=== PATIENT | female | born 1950 | race Asian ===

== ENCOUNTER → 2019-06-30 | Outpatient (CLI) | payer OTHER, MEDICARE ==
[~2019-06-30] MED LIST: AMLO10TA7 PO; ARTHRITIS MED; CALC-1038 PO; CETI10TA59 PO; GLUC100019 PO
[2019-06-30 11:42] LABS: BASOPHILS % (AUTO) 0.9 % (0.0-2.0); EOSINOPHILS % (AUTO) 2.1 % (1.0-6.0); HEMATOCRIT 40.1 % (36-46); HEMOGLOBIN 13.3 g/dL (12.0-16.0); LYMPHOCYTES # (AUTO) 1.2 K/uL (1.0-4.8); LYMPHOCYTES % (AUTO) 24.2 % (22.0-44.0); MEAN CORPUSCULAR HEMOGLOBIN 29.4 pg (26.0-34.0); MEAN CORPUSCULAR HGB CONC 33.1 G/dL (31.0-37.0); MEAN CORPUSCULAR VOLUME 89 fL (80-100); MONOCYTES # (AUTO) 0.3 K/uL (0.1-1.0); MONOCYTES % (AUTO) 6.6 % (2.0-9.0); NEUTROPHILS # (AUTO) 3.2 K/uL (1.8-7.7); NEUTROPHILS % (AUTO) 66.2 % (40.0-70.0); PLATELET COUNT (AUTO) 229 K/uL (150-450); RED BLOOD CELL COUNT(AUTO) 4.52 MIL/uL (4.00-5.20); RED CELL DISTRIBUTION WIDTH 12.5 % (11.5-14.5)
[2019-06-30 12:39] LABS: HEMOGLOBIN A1C 5.7 % (4.5-6.2)
[2019-06-30 12:43] LABS: ALANINE AMINOTRANSFERASE 28 U/L (12-78); ALBUMIN 3.8 g/dL (3.4-5.0); ALKALINE PHOSPHATASE 102 U/L (46-116); ANION GAP 7 mmol/L (8-16); ASPARTATE AMINOTRANSFERASE 30 U/L (15-37); BILIRUBIN,TOTAL 0.4 mg/dL (0.1-1.0); CALCIUM, TOTAL 8.8 mg/dL (8.8-10.5); CARBON DIOXIDE 30 mmol/L (22-29); CHLORIDE 103 mmol/L (98-107); CHOL/HDL RATIO 2.3 (3.9-5.7); CHOLESTEROL 133 mg/dL (131-200); CREATININE 0.49 mg/dL (0.60-1.30); GLOMERULAR FILTR. RATE CALC > 60 mL/min (>60); GLUCOSE,RANDOM 102 mg/dL (70-110); HDL CHOLESTEROL 58 mg/dL (40-60); LDL CHOL (CALC.) 62 mg/dL (0-130); SODIUM SERUM 140 mmol/L (136-145); THYROID STIMULATING HORMONE 2.62 uIU/mL (0.36-3.74); TOTAL PROTEIN, SERUM 7.4 g/dL (6.4-8.2); TRIGLYCERIDES 64 mg/dL (15-150); UREA NITROGEN, BLOOD 11 mg/dL (7-18)
== END | disposition home or self-care (01) ==
LOC: LABPV 08:08
PROVIDERS: ATTEND Internal Medicine
DX: E78.5 Hyperlipidemia, unspecified (principal); Z79.899 Other long term (current) drug therapy
CPT/HCPCS: 83036; 84443

== ENCOUNTER 2019-09-14 05:29 | Day surgery (SDC) | payer MEDICARE, OTHER ==
[~2019-09-14] VITALS: Ht 154.9 cm; Wt 52.3 kg
[~2019-09-14 05:29] MED LIST changes: -ARTHRITIS MED; +ASPI81 PO; -CETI10TA59 PO; +RINGERS SOLUTION,LACTATED 500 ML IV ONE; +SIMV-260 PO
[2019-09-14] MEDS ORDERED: RINGERS SOLUTION,LACTATED 500 ML IV ONE (05:35)
[2019-09-14] MEDS ORDERED: PANT20TA12 PO (06:16)
[2019-09-14] MEDS ORDERED: ERGO400T7 PO (06:16)
[2019-09-14] MEDS ORDERED: LIDOCAINE 2%/EPI 1:200,000/PF 20 ML VIAL ONE (06:20)
[2019-09-14] MEDS ORDERED: BUPIVACAINE HCL/PF 0.75% 10 ML VIAL ONE (06:20)
[2019-09-14] MEDS ORDERED: POVIDONE-IODINE 10% 15 ML SOLUTION UD ONE (06:22)
[2019-09-14] MEDS ORDERED: NEOMYCIN/POLYMYXIN B/DEXAMETH 3.5 GM OPHTHALMIC OINTMENT ONE (06:29)
[2019-09-14] MEDS ORDERED: HYALURONIDASE, HUMAN RECOMB. 150 UNITS/ML ID ONE (06:30)
[2019-09-14] MEDS ORDERED: HYALURONIDASE, HUMAN RECOMB. 150 UNITS/ML ONE (06:39)
[2019-09-14] MEDS ORDERED: HYDROmorphone 2 MG/ML SYRINGE IVP PRN (07:15)
[2019-09-14] MEDS ORDERED: FentaNYL CITRATE-PF 100 MCG/2 ML VIAL IVP PRN (07:15)
[2019-09-14] MEDS ORDERED: MEPERIDINE-PF 25 MG/ML VIAL IVP PRN (07:15)
[2019-09-14] MEDS ORDERED: OXYGEN THERAPY IH SCH (08:00)
[2019-09-14] MEDS ORDERED: ONDANSETRON HCL 4 MG/2 ML VIAL IVP ONE (12:00)
[2019-09-14] MEDS ORDERED: LIDOCAINE/PF 2% 5 ML SYRINGE IVP ONE (12:00)
[2019-09-14] MEDS ORDERED: FentaNYL CITRATE-PF 100 MCG/2 ML VIAL IVP ONE (12:00)
[2019-09-14] MEDS ORDERED: PROPOFOL 1% 20 ML VIAL IVP ONE (12:00)
[2019-09-14] MEDS ORDERED: MIDAZOLAM HCL 2 MG/2 ML VIAL IVP ONE (12:00)
== END 2019-09-14 08:45 | disposition home or self-care (01) ==
LOC: SDS 05:29
PROVIDERS: ATTEND Ophthalmology
DX: H02.834 Dermatochalasis of left upper eyelid (principal); H02.831 Dermatochalasis of right upper eyelid; I10 Essential (primary) hypertension; M19.90 Unspecified osteoarthritis, unspecified site; Z79.82 Long term (current) use of aspirin; Z79.899 Other long term (current) drug therapy; Z98.41 Cataract extraction status, right eye; Z98.42 Cataract extraction status, left eye; Z82.49 Family history of ischemic heart disease and other diseases of the circulatory system
CPT/HCPCS: 15822; 93005; J2250; J2405; J2704; J3010; J3473; J3490 ×2; J7120